=== PATIENT | female | born 1950 | race Asian ===

== ENCOUNTER 2019-02-13 10:04 | Emergency (ER) | payer OTHER ==
[~2019-02-13] VITALS: Ht 154.9 cm; Wt 60.8 kg
[2019-02-13 10:29] VITALS: BP_SYST 160
--- NOTE | 2019-02-13 10:29 | NUR ---
Patient to ER bed 5 to gown for evaluation. Side rails up. Assumed care.
--- NOTE | 2019-02-13 10:35 | NUR ---
Patient arrived via POV, AAOx4, and ambulatory with steady gait. Patient states she was looking at someone and the car door shut on her right index finger. Mild bleeding occurred, bruising to nail, and swelling. Patient states pain 10/10. Patient given gauze for bleeding control and ice pack for pain management.
--- NOTE | 2019-02-13 10:40 | NUR ---
ER at bedside examining patient.
--- NOTE | 2019-02-13 10:54 | NUR ---
Wound cleansed with betadine and normal saline. Wound dressed with non adherent dressing, gauze wrap, and tape.
[2019-02-13 12:58] VITALS: BP_SYST 157
--- NOTE | 2019-02-13 12:58 | NUR ---
Patient given written and verbal discharge instructions and verbalizes understanding. ER MD discussed with patient the results and treatment provided. Patient in stable condition. ID arm band removed. Rx of Motrin given. Patient educated on pain management and to follow up with PMD. Pain Scale 2/10. Opportunity for questions provided and answered. Medication side effect fact sheet provided.
[2019-02-13] MEDS ORDERED: ACETAMINOPHEN 500 MG TABLET PO ONE (13:00)
== END 2019-02-13 12:58 | disposition home or self-care (01) ==
LOC: SED 10:04
DX: S62.660A Nondisplaced fracture of distal phalanx of right index finger, initial encounter for closed fracture (principal); Z88.6 Allergy status to analgesic agent; Z88.8 Allergy status to other drugs, medicaments and biological substances; W23.0XXA Caught, crushed, jammed, or pinched between moving objects, initial encounter; Y93.89 Activity, other specified; Y92.89 Other specified places as the place of occurrence of the external cause; Y99.8 Other external cause status
CPT/HCPCS: 99283